=== PATIENT | male | born 1975 | race Asian ===

== ENCOUNTER 2019-05-24 18:24 | Emergency (ER) | payer SELFPAY ==
[2019-05-24 18:32] VITALS: BP 174/125
--- NOTE | 2019-05-24 19:39 | ER Document Report ---
ED Medical Screen (RME) - General Chief Complaint: Pain All Over Stated Complaint: LEFT SIDE PAIN Time Seen by Provider: 05/24/19 19:31 Mode of Arrival: Wheelchair Information source: Patient Notes: 43-year-old male presents the ED for complaint of low back pain radiating down the left leg hot. He states he has had herniated disc with radiculopathy and was discharged retired 2014 from the due to refusing back surgery for the disc. He states he went to today and a shot of morphine Toradol and Decadron about 1:00 this afternoon. He states that they told him to follow-up with his pain management. He states the pain came back so he came to us for more pain medicine. I offered him a another shot of Toradol he stated that he did not want another Toradol shot he did not want another Band-Aid for his pain he wanted some real pain medication for his chronic pain. When I informed him that he would need to see another provider for this time of pain medicine for his chronic pain he stated he will go home and go back to . He did not want vital signs rechecked he did not want anything he states he was just leaving TRAVEL OUTSIDE OF THE [place] IN LAST 30 DAYS: No - Related Data Allergies/Adverse Reactions: No Known Allergies Allergy (Unverified 05/24/19 19:30) Home Medications: "Blood pressure medications" Physical Exam - Vital signs Vitals: Temp Pulse Resp BP Pulse Ox 98.2 F 116 H 30 H 174/125 H 98 05/24/19 18:28 05/24/19 18:28 05/24/19 18:28 05/24/19 18:28 05/24/19 18:28 Course - Vital Signs Vital signs: Temp Pulse Resp BP Pulse Ox 98.2 F 116 H 30 H 174/125 H 98 05/24/19 18:28 05/24/19 18:28 05/24/19 18:28 05/24/19 18:28 05/24/19 18:28 Doctor's Discharge - Discharge Clinical Impression: Chronic low back pain Qualifiers: Back pain laterality: left Sciatica presence: with sciatica Sciatica laterality: sciatica of left side Qualified Code(s): M54.42 - Lumbago with sciatica, left side Disposition: ELOPED
== END 2019-05-24 19:39 | disposition left against medical advice (07) ==
LOC: ER 18:24
DX: G89.29 Other chronic pain (principal); M54.42 Lumbago with sciatica, left side; Z79.899 Other long term (current) drug therapy; Z53.29 Procedure and treatment not carried out because of patient's decision for other reasons
CPT/HCPCS: 99281